=== PATIENT | male | born 1945 | race Caucasian/White ===

== ENCOUNTER 2022-04-30 06:25 | Day surgery (SDC) | payer MEDICARE ==
[~2022-04-30 06:25] MED LIST: DIPRIVAN 200 MG/20 ML IV ONE; Xylocaine-Mpf 2% 5 Ml Vial ONE
[2022-04-30] MEDS ORDERED: Lactated Ringers 1,000 ML IV SCH (06:30)
[2022-04-30] MEDS ORDERED: ATROPINE SULFATE 1MG ONE (08:02)
[2022-04-30 09:19] VITALS: O2SAT 98
[2022-04-30 09:43] VITALS: BP 137/74; PULSE 54
--- NOTE | 2022-04-30 10:23 | OP ---
SURGERY DATE/TIME: 04/30/2022 0759 PREOPERATIVE DIAGNOSIS: Screening exam. POSTOPERATIVE DIAGNOSIS: Multiple colon polyps. PROCEDURE: Colonoscopy with cold forceps biopsy. SURGEON: Dr. Reece Green. ANESTHESIA: MAC. Medications given by anesthesia department. HISTORY: The patient is a 77-year-old white male patient now presenting for screening colonoscopy. The patient was appraised of the risks of the procedure including the risk of perforation, phlebitis, untoward reaction to medication, bleeding and missed lesions. The patient verbalized his understanding and desired to have the procedure performed. DESCRIPTION OF PROCEDURE: The patient was given the medications by the anesthesia department. He had continuous pulse oximetry, ECG monitoring, intermittent blood pressure monitoring and tidal CO2 monitoring during the examination. He was placed in the left lateral decubitus position. A digital rectal examination was performed and revealed normal anal sphincter tone, no masses and normal prostate. The flexible Olympus pediatric colonoscope was used to intubate the rectum. A view of the colon was developed sequentially to the cecum. Upon insertion and withdrawal was noted polyps in the cecum, ascending colon and sigmoid colon. These were biopsied and basically destroyed using multiple passes of the cold biopsy forceps. No other mucosal lesions being encountered. The scope was removed from the patient who tolerated the procedure well and was sent back to OP recovery in good condition. The prep was noted to be fair to poor with over a liter of fluid and stool removed from the colon during the examination.
== END 2022-04-30 09:40 | disposition home or self-care (01) ==
LOC: SDC 06:25
PROVIDERS: ATTEND Family Medicine
DX: Z12.11 Encounter for screening for malignant neoplasm of colon (principal); D12.2 Benign neoplasm of ascending colon; D12.0 Benign neoplasm of cecum; D12.5 Benign neoplasm of sigmoid colon
CPT/HCPCS: 93005; 99100; J0461; J2704

== ENCOUNTER 2023-08-22 17:17 | Observation (INO) | payer MEDICARE, OTHER ==
--- NOTE | 2023-08-22 19:27 | ERPHSYRPT ---
- History of Present Illness Time Seen by Provider: 08/22/23 19:20 Source: patient, family Patient Subjective Stated Complaint: Patient began having chills, sweats, foul- smelling urine (cloudy), and some weakness (trouble with gait) on 08/20/23. Patient had a prostate surgery approx 3 weeks ago and F/C was removed 6 days ago. Triage Nursing Assessment: Patient brought back to ER in a W/C. He was able to bear weight to BLE without any difficulties to transfer from chair to bed with staff assist. He is noted to be SOB. No cough. Abdomen is distended. Denie pain. Physician History: 78yo m presents per PCP request following outpatient labs today that showed wbc > 14, UA w/ significant bacteria and leukocytes, pcp told pt they should come to ED for IV abx. Pt had prostate surgery 3wks ago by Dr Kinney in [place], pt had fonseca cath removed on 08/16/23. reports pt has had chills and sweats x 3d, reports pt has been intermittently confused for the same duration. Pt is currently AxO x 3, denies any cp, soa, n/v, does endorse some mild suprapubic tenderness. does report pt has been having b/l LE swelling x 1d, does not have dx of chf. Timing/Duration: day(s) (4) Activites at Onset: none Quality: aching Onset Location: suprapubic Pain Radiation: none Severity of Pain-Max: mild Severity of Pain-Current: mild Modifying Factors: Improves With: nothing Associated Symptoms: fever, chills, diaphoresis, dysuria, No nausea, No vomiting, No urinary frequency, No lower back pain Prior abdominal problems: other (prostatectomy in 07/2023) Sexual intercourse history: non-contributory Allergies/Adverse Reactions: adhesive tape Adverse Reaction (Verified 08/22/23 18:32) aloe vera Adverse Reaction (Verified 08/22/23 18:32) Rash lisinopril Adverse Reaction (Verified 08/22/23 18:32) Cough Home Medications: Allopurinol 100 mg [Zyloprim 100 mg] 100 mg PO BID 04/13/22 [History] Carbidopa/Levodopa [Carbidopa-Levodopa 25-100 Tab] 1 each PO TID 04/13/22 [History] Hydrocodone/Acetaminophen [Hydrocodone-Acetamin 10-325 mg] 1 each PO BID 04/13/22 [History] Losartan Potassium 50 mg PO DAILY 04/13/22 [History] Lovastatin 10 mg PO HS 04/13/22 [History] hydroCHLOROthiazide [Hydrochlorothiazide] 12.5 mg PO DAILY 04/13/22 [History] Aspirin EC 81 mg [Ecotrin 81 mg] 81 mg PO DAILY 08/22/23 [History] Gabapentin [Neurontin ] 300 mg PO DAILY 08/22/23 [History] Levofloxacin [Levofloxacin 500 MG Tablet] 500 mg PO 1300 08/22/23 [History] Tamsulosin HCl 0.4 mg [Flomax 0.4 MG] 0.4 mg PO 1500 08/22/23 [History] Hx Tetanus, Diphtheria Vaccination/Date Given: Yes Hx Influenza Vaccination/Date Given: No Hx Pneumococcal Vaccination/Date Given: No Immunizations Up to Date: Yes Travel Risk - International Travel Have you traveled outside of the country in past 3 weeks: No - Coronavirus Screening Are you exhibiting any of the following symptoms?: No Close contact with a COVID-19 positive Pt in past 14-21 Days: No - Vaccine Status Have you recieved a Covid-19 vaccination: No - Past Medical History Pertinent Past Medical History: Yes Neurological History: Peripheral Neuropathy, Other Cardiac History: Hypertension, Other Respiratory History: Other Endocrine Medical History: Other Musculoskeletal History: Osteoarthritis Male Reproductive Disorders: Prostate Problems Other Medical History: KIDNEY STONES, SOB AT TIMES, CABG X5, 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 - Past Surgical History Past Surgical History: Yes Cardiac: CABG, Cardiac Catheterization Musculoskeletal: Joint Replacement Male Surgical History: Prostate Surgery - Social History Smoking Status: Former smoker Exposure to second hand smoke: No Drug Use: none Patient Lives Alone: No - Review of Systems Constitutional: Chills, Fatigue, No Fever Respiratory: No Symptoms, No Cough, No Dyspnea Cardiac: No Symptoms, Edema, No Chest Pain Abdominal/Gastrointestinal: Abdominal Pain, No Nausea, No Vomiting Genitourinary Symptoms: Dysuria, Urgency, No Frequency, No Hematuria, No Urinary Retention, No Flank Pain, No Testicle Pain, No Penile Discharge - Nursing Vital Signs Nursing Vital Signs: Initial Vital Signs Pulse Rate 88 08/22/23 18:30 Respiratory Rate 22 08/22/23 18:30 Blood Pressure 126/52 08/22/23 18:30 O2 Sat by Pulse Oximetry 94 L 08/22/23 18:30 Pain Scale Pain Intensity 4 - Physical Exam General Appearance: no apparent distress, alert Eye Exam: PERRL/EOMI, eyes nml inspection Respiratory Exam: normal breath sounds, lungs clear, airway intact, No respiratory distress, No crackles/rales, No wheezing Cardiovascular Exam: regular rate/rhythm, normal heart sounds, edema (b/l LE 2+) Gastrointestinal/Abdomen Exam: soft, normal bowel sounds, No tenderness, No di stention Rectal Exam: deferred Neurologic Exam: alert, oriented x 3, cooperative SpO2 Interpretation: normal SpO2: 96 O2 Delivery: Room Air Ordered Tests: Active Orders 24 hr Category Date Time Status IV Insertion STAT Care 08/22/23 19:18 Active BLOOD CULTURE Stat Lab 08/22/23 19:38 Received BNPII [NT PRO BNPII] Stat Lab 08/22/23 19:30 Completed CBC W DIFF Stat Lab 08/22/23 19:30 Completed CMP Stat Lab 08/22/23 19:30 Completed CULTURE,URINE Stat Lab 08/22/23 20:55 Received Lactic Acid Stat Lab 08/22/23 19:15 Completed Lactic Acid Stat Lab 08/22/23 21:28 Completed UA W/RFX UR CULTURE Stat Lab 08/22/23 20:55 Completed Medication Summary Discontinued Medications Generic Name Dose Route Start Last Admin Trade Name Freq PRN Reason Stop Dose Admin Ceftriaxone Sodium 1,000 mg 08/22/23 19:18 08/22/23 19:42 Ceftriaxone Sodium 1000 Mg Inj Vial IM 08/22/23 19:19 1,000 mg STAT ONE Administration Ceftriaxone Sodium Confirm 08/22/23 19:35 Ceftriaxone Sodium 1000 Mg Inj Vial Administered 08/22/23 19:36 Dose 1,000 mg .ROUTE .STK-MED ONE Lidocaine HCl Confirm 08/22/23 19:35 Lidocaine Hcl 1% 20 Ml Mdv 20 Ml Ml Administered 08/22/23 19:36 Dose 2 ml .ROUTE .STK-MED ONE Lab/Rad Data: Laboratory Result Diagrams 08/22/23 19:30 08/22/23 19:30 Laboratory Results 08/22/23 08/22/23 08/22/23 Range/Units 21:28 20:55 19:30 WBC (4.0-10.5) x10^3/uL RBC (4.1-5.6) x10^6/uL Hgb (12.5-18.0) g/dL Hct (42-50) % MCV (78-100) fL MCH (26-32) pg MCHC (32-36) g/dL RDW (11.5-14.0) % Plt Count (150-450) x10^3/uL MPV (7.5-11.0) fL Gran % (36.0-66.0) % Immature Gran % (Auto) (0.00-0.4) % Nucleat RBC Rel Count (0.00-0.1) % Eos # (Auto) (0-0.5) x10^3/uL Immature Gran # (Auto) (0.00-0.03) x10^3u/L Absolute Lymphs (auto) (1.0-4.6) x10^3/uL Absolute Monos (auto) (0.0-1.3) x10^3/uL Absolute Nucleated RBC (0.00-0.01) x10^3u/L Lymphocytes % (24.0-44.0) % Monocytes % (0.0-12.0) % Eosinophils % (0.00-5.0) % Basophils % (0.0-0.4) % Absolute Granulocytes (1.4-6.9) x10^3/uL Basophils # (0-0.4) x10^3/uL Sodium (137-145) mmol/L Potassium (3.5-5.1) mmol/L Chloride (98-107) mmol/L Carbon Dioxide (22-30) mmol/L Anion Gap (5-15) MEQ/L BUN (9-20) mg/dL Creatinine (0.66-1.25) mg/dL Estimated GFR ML/MIN Glucose (74-106) mg/dL Lactic Acid 1.4 (0.4-2.0) Calcium (8.4-10.2) mg/dL Total Bilirubin (0.2-1.3) mg/dL AST (17-59) U/L ALT (0-50) U/L Alkaline Phosphatase (38-126) U/L NT-Pro-B Natriuret Pep 2860 (<300) pg/mL Serum Total Protein (6.3-8.2) g/dL Albumin (3.5-5.0) g/dL Urine Color Yellow (Yellow) Urine Appearance Turbid A (Clear) Urine pH 6.0 (4.6-8.0) Ur Specific [place] 1.015 (1.005-1.030) Urine Protein 100 A (Negative) Urine Glucose (UA) Negative (Negative) mg/dL Urine Ketones Trace A (Negative) Urine Blood Moderate A (Negative) Urine Nitrite Negative (Negative) Urine Bilirubin Negative (Negative) Urine Urobilinogen 1.0 A (0.2) mg/dL Ur Leukocyte Esterase Large A (Negative) U Hyaline Cast (Auto) None Seen (0-2) /LPF Urine Microscopic RBC 0-2 (0-5) /HPF Urine Microscopic WBC >100 A (0-5) /HPF Ur Epithelial Cells None Seen (None Seen) /HPF Urine Bacteria Moderate A (None Seen) /HPF Urine Culture Reflexed YES (NO) Slides for Path Review 08/22/23 08/22/23 08/22/23 Range/Units 19:30 19:30 19:15 WBC 15.9 H (4.0-10.5) x10^3/uL RBC 3.87 L (4.1-5.6) x10^6/uL Hgb 11.5 L (12.5-18.0) g/dL Hct 33.9 L (42-50) % MCV 87.6 (78-100) fL MCH 29.7 (26-32) pg MCHC 33.9 (32-36) g/dL RDW 14.0 (11.5-14.0) % Plt Count 190 (150-450) x10^3/uL MPV 10.6 (7.5-11.0) fL Gran % 88.1 H (36.0-66.0) % Immature Gran % (Auto) 0.5 H (0.00-0.4) % Nucleat RBC Rel Count 0.0 (0.00-0.1) % Eos # (Auto) 0.01 (0-0.5) x10^3/uL Immature Gran # (Auto) 0.08 H (0.00-0.03) x10^3u/L Absolute Lymphs (auto) 0.37 L (1.0-4.6) x10^3/uL Absolute Monos (auto) 1.42 H (0.0-1.3) x10^3/uL Absolute Nucleated RBC 0.00 (0.00-0.01) x10^3u/L Lymphocytes % 2.3 L (24.0-44.0) % Monocytes % 8.9 (0.0-12.0) % Eosinophils % 0.1 (0.00-5.0) % Basophils % 0.1 (0.0-0.4) % Absolute Granulocytes 14.01 H (1.4-6.9) x10^3/uL Basophils # 0.02 (0-0.4) x10^3/uL Sodium 128 L (137-145) mmol/L Potassium 3.9 (3.5-5.1) mmol/L Chloride 97 L (98-107) mmol/L Carbon Dioxide 19 L (22-30) mmol/L Anion Gap 15.8 H (5-15) MEQ/L BUN 92 H (9-20) mg/dL Creatinine 3.00 H (0.66-1.25) mg/dL Estimated GFR 20.5 ML/MIN Glucose 139 H (74-106) mg/dL Lactic Acid 2.4 H (0.4-2.0) Calcium 8.5 (8.4-10.2) mg/dL Total Bilirubin 0.90 (0.2-1.3) mg/dL AST 106 H (17-59) U/L ALT 10 (0-50) U/L Alkaline Phosphatase 105 (38-126) U/L NT-Pro-B Natriuret Pep (<300) pg/mL Serum Total Protein 6.5 (6.3-8.2) g/dL Albumin 3.7 (3.5-5.0) g/dL Urine Color (Yellow) Urine Appearance (Clear) Urine pH (4.6-8.0) Ur Specific [place] (1.005-1.030) Urine Protein (Negative) Urine Glucose (UA) (Negative) mg/dL Urine Ketones (Negative) Urine Blood (Negative) Urine Nitrite (Negative) Urine Bilirubin (Negative) Urine Urobilinogen (0.2) mg/dL Ur Leukocyte Esterase (Negative) U Hyaline Cast (Auto) (0-2) /LPF Urine Microscopic RBC (0-5) /HPF Urine Microscopic WBC (0-5) /HPF Ur Epithelial Cells (None Seen) /HPF Urine Bacteria (None Seen) /HPF Urine Culture Reflexed (NO) Slides for Path Review YES - Progress Progress: unchanged Progress Note: 08/22/23 20:43 wbc > 15 Lactate 2.4 electrolytes diminished Cr 3.0 BNP > 2800 infxn source likely UTI, UA pending but had outpatient labs today suggesting UTI given 1g rocephin in ED blood and urine cx pending, will repeat lactate resuscitative fluids held in setting of significant fluid overload vitals stable 08/22/23 22:02 Urine grossly infected plan to admit for complicated cystitis, previously undiagnosed CHF w/ exacerbation 08/22/23 22:03 lactate improved to 1.4 08/22/23 22:10 Discussed admission w/ Dr Dotson, who accepts for obs Will see patient in: hospital (observation) Counseled pt/family regarding: lab results, diagnosis, need for follow-up Medical Desision Making - Discussion of managment Care discussed with:: hospitalist Reviewed:: Test results Agreed on:: Treatment plan, place in obs Will see patient: in hospital - Diagnostic Testing Diagnostic test were ordered, analyzed, and reviewed by me: No - Risk of complications The pt has a mod risk of morbidity or mortality based on: Need for prescription drug management - Departure Departure Disposition: Observation Clinical Impression: Urinary tract infection in male, CHERYL (acute kidney injury) Acute exacerbation of congestive heart failure Qualifiers: Heart failure type: unspecified Qualified Code(s): I50.9 - Heart failure, u nspecified Condition: Stable Critical Care Time: No Referrals: ROSSANA MIGUEL [Primary Care Provider] - Follow up/PCP as directed Instructions: Heart Failure
[2023-08-22] MEDS ORDERED: XYLOCAINE 1% HCL 20 ML MDV ONE (19:35)
[2023-08-22] MEDS ORDERED: Rocephin 1000 MG INJ ONE (19:35)
[2023-08-22] MEDS: Rocephin 1000 MG INJ IM ONE (19:42)
[2023-08-22 19:46] LABS: Absolute Neutrophil Ct (ANC) 14.01 x10^3/uL (1.4-6.9); BASOPHIL % 0.1 % (0.0-0.4); Basophil (Absolute #) 0.02 x10^3/uL (0-0.4); Eosinophil % 0.1 % (0.00-5.0); Eosinophil (Absolute #) 0.01 x10^3/uL (0-0.5); Hematocrit 33.9 % (42-50); Hemoglobin 11.5 g/dL (12.5-18.0); IMMATURE GRAN # 0.08 x10^3u/L (0.00-0.03); IMMATURE GRAN % 0.5 % (0.00-0.4); Lymphocyte (Absolute #) 0.37 x10^3/uL (1.0-4.6); Lymphocytes % 2.3 % (24.0-44.0); Mean Cell Volume 87.6 fL (78-100); Mean Corpuscular Hemoglobin 29.7 pg (26-32); Mean Corpuscular Hgb Concent. 33.9 g/dL (32-36); Mean Platelet Volume 10.6 fL (7.5-11.0); Monocyte (Absolute #) 1.42 x10^3/uL (0.0-1.3); Monocytes % 8.9 % (0.0-12.0); Neutrophil % 88.1 % (36.0-66.0); Platelet Count 190 x10^3/uL (150-450); Red Blood Count 3.87 x10^6/uL (4.1-5.6); White Blood Count 15.9 x10^3/uL (4.0-10.5)
[2023-08-22 20:02] LABS: ALBUMIN 3.7 g/dL (3.5-5.0); ANION GAP 15.8 MEQ/L (5-15); BILIRUBIN,TOTAL 0.9 mg/dL (0.2-1.3); Calcium 8.5 mg/dL (8.4-10.2); EST GLOMERULAR FILTRATION RATE 20.5 ML/MIN; Potassium 3.9 mmol/L (3.5-5.1); Total Protein 6.5 g/dL (6.3-8.2)
[2023-08-22 21:09] LABS: Appearance Turbid (Clear); Bilirubin Negative (Negative); Blood Moderate (Negative); Glucose, Urine Negative (Negative); Ketones Trace (Negative); Leukocyte Esterase Large (Negative); Nitrite Negative (Negative); Protein,Urine Dip 100 (Negative); Specific Gravity 1.015 (1.005-1.030)
[2023-08-22 21:30] LABS: Slide Review 1 YES
[2023-08-22 21:49] LABS: Epithelial Cells None Seen /HPF (None Seen); RBC 0-2 /HPF (0-5); WBC >100 /HPF (0-5)
[2023-08-22 21:50] LABS: ADD URINE CULTURE? YES (NO); Bacteria Moderate /HPF (None Seen); Hyaline Casts None Seen /LPF (0-2)
[2023-08-22] MEDS ORDERED: Apresoline 25 MG TABLET PO PRN (23:46)
[2023-08-23] MEDS ORDERED: Zofran 4 MG/2 ML VIAL IV PRN
[2023-08-23] MEDS ORDERED: Docusate Sodium 100 MG PO PRN
--- NOTE | 2023-08-23 00:09 | PCM.HP ---
History of Present Illness - Chief Complaint Chief Complaint: UTI Date: 08/22/23 History of Present Illness: is a 78 year old male with a history of prostate enlargement and recent prostate procedure by Dr. Kinney on 08/01/23 (and postop Avila catheter removal on 08/16/23) who presents to the hospital with complaints of having chills, sweats, foul-smelling urine (cloudy), and some weakness (trouble with gait) on 08/20/23. He followed up with Dr. Barnes and had outpatient labs that showed wbc > 14 and a UA w/ significant bacteria and leukocytes. The PCP said the patient should come to the ED for IV antibiotics. The patient's reports that he has had chills and sweats for 3 days, with intermittent confusion for the same duration. In the ED the patient was oriented and had mild suprapubic tenderness. Leg edema was noted bilaterally and the patient's feels like the leg edema is improved since the patient recently had an injury. No chest pain. - Review of Systems Constitutional: Fever, Chills, Fatigue, Lethargy, Malaise, Weakness Eyes: No Symptoms Ears, Nose, & Throat: No Symptoms Respiratory: No Symptoms Cardiac: No Symptoms Abdominal/Gastrointestinal: Abdominal Pain Genitourinary Symptoms: Dysuria, Flank Pain Skin: No Symptoms Neurological: No Symptoms Psychological: No Symptoms Endocrine: No Symptoms Hematologic/Lymphatic: No Symptoms Immunological/Allergic: No Symptoms All Other Systems: Reviewed and Negative Medications & Allergies Home Medications: Home Medication List Allopurinol 100 mg [Zyloprim 100 mg] 100 mg PO BID 04/13/22 [History Confirmed 08/22/23] Carbidopa/Levodopa [Carbidopa-Levodopa 25-100 Tab] 2 tab PO TID 04/13/22 [History Confirmed 08/22/23] Hydrocodone/Acetaminophen [Hydrocodone-Acetamin 10-325 mg] 1 each PO BID 04/13/22 [History Confirmed 08/22/23] Losartan Potassium 50 mg PO DAILY 04/13/22 [History Confirmed 08/22/23] Lovastatin 10 mg PO HS 04/13/22 [History Confirmed 08/22/23] hydroCHLOROthiazide [Hydrochlorothiazide] 12.5 mg PO DAILY 04/13/22 [History Confirmed 08/22/23] Aspirin EC 81 mg [Ecotrin 81 mg] 81 mg PO HS 08/22/23 [History Confirmed 08/22/23] Gabapentin [Neurontin ] 300 mg PO DAILY 08/22/23 [History Confirmed 08/22/23] Levofloxacin [Levofloxacin 500 MG Tablet] 500 mg PO 1300 08/22/23 [History Confirmed 08/22/23] Tamsulosin HCl 0.4 mg [Flomax 0.4 MG] 0.4 mg PO 1500 08/22/23 [History Confirmed 08/22/23] Allergies/Adverse Reactions: Allergies Allergy/AdvReac Type Severity Reaction Status Date / Time adhesive tape AdvReac Verified 08/22/23 18:32 aloe vera AdvReac Rash Verified 08/22/23 18:32 lisinopril AdvReac Cough Verified 08/22/23 18:32 - Past Medical History Past Medical History: Yes Neurological History: Peripheral Neuropathy, Other ENT History: No Pertinent History Cardiac History: Hypertension Respiratory History: No Pertinent History Endocrine Medical History: No Pertinent History Musculoskelatal History: Osteoarthritis GI Medical History: No Pertinent History History: No Pertinent History Male Reproductive Disorders: Prostate Problems Comment: KIDNEY STONES, SOB AT TIMES, CABG X5, 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 - Past Surgical History Past Surgical History: Yes Neuro Surgical History: No Pertinent History Cardiac History: CABG, Cardiac Catheterization Respiratory Surgery: No Pertinent History GI Surgical History: Appendectomy Genitourinary Surgical Hx: No Pertinent History Musculskeletal Surgical Hx: Joint Replacement Male Surgical History: Prostate Surgery Other Surgical History: eye lid surgery - Social History Smoking Status: Former smoker Exposure to second hand smoke: No Alcohol: None Drug Use: none - Physical Exam Vital Signs: Vital Signs - 24 hr Temp Pulse Resp BP BP Pulse Ox 08/22/23 22:52 97.7 F 93 H 18 128/59 95 08/22/23 22:12 96 08/22/23 22:00 74 23 99/58 95 08/22/23 21:31 72 26 H 103/54 95 08/22/23 21:01 77 24 111/67 96 08/22/23 20:30 98.5 F 76 29 H 100/58 95 08/22/23 20:00 76 26 H 115/55 93 L 08/22/23 19:45 81 22 109/53 93 L 08/22/23 19:40 87 26 H 94 L 08/22/23 19:32 83 13 92 L 08/22/23 19:00 88 25 H 108/47 94 L 08/22/23 18:33 98.2 F 90 30 H 126/52 96 08/22/23 18:30 88 22 126/52 94 L General Appearance: no apparent distress, alert Neurologic Exam: alert, oriented x 3, cooperative, eyeglass lens grinder II-XII nml as tested, normal mood/affect, nml cerebellar function Eye Exam: PERRL/EOMI, eyes nml inspection Ears, Nose, Throat Exam: normal ENT inspection Neck Exam: normal inspection, non-tender, supple, full range of motion Respiratory Exam: normal breath sounds, lungs clear Cardiovascular Exam: regular rate/rhythm, normal heart sounds, edema (bilateral nonpitting pedal edema) Gastrointestinal/Abdomen Exam: soft, normal bowel sounds Back Exam: normal range of motion, CVA tenderness (on left) Extremity Exam: normal range of motion, pedal edema (bilateral nonpitting), swelling Skin Exam: normal color Results - Labs Lab/Micro Results: Lab Results-Last 24 Hours 08/22/23 08/22/23 08/22/23 Range/Units 19:15 19:30 19:30 WBC 15.9 H (4.0-10.5) x10^3/uL RBC 3.87 L (4.1-5.6) x10^6/uL Hgb 11.5 L (12.5-18.0) g/dL Hct 33.9 L (42-50) % MCV 87.6 (78-100) fL MCH 29.7 (26-32) pg MCHC 33.9 (32-36) g/dL RDW 14.0 (11.5-14.0) % Plt Count 190 (150-450) x10^3/uL MPV 10.6 (7.5-11.0) fL Gran % 88.1 H (36.0-66.0) % Immature Gran % (Auto) 0.5 H (0.00-0.4) % Nucleat RBC Rel Count 0.0 (0.00-0.1) % Eos # (Auto) 0.01 (0-0.5) x10^3/uL Immature Gran # (Auto) 0.08 H (0.00-0.03) x10^3u/L Absolute Lymphs (auto) 0.37 L (1.0-4.6) x10^3/uL Absolute Monos (auto) 1.42 H (0.0-1.3) x10^3/uL Absolute Nucleated RBC 0.00 (0.00-0.01) x10^3u/L Lymphocytes % 2.3 L (24.0-44.0) % Monocytes % 8.9 (0.0-12.0) % Eosinophils % 0.1 (0.00-5.0) % Basophils % 0.1 (0.0-0.4) % Absolute Granulocytes 14.01 H (1.4-6.9) x10^3/uL Basophils # 0.02 (0-0.4) x10^3/uL Sodium 128 L (137-145) mmol/L Potassium 3.9 (3.5-5.1) mmol/L Chloride 97 L (98-107) mmol/L Carbon Dioxide 19 L (22-30) mmol/L Anion Gap 15.8 H (5-15) MEQ/L BUN 92 H (9-20) mg/dL Creatinine 3.00 H (0.66-1.25) mg/dL Estimated GFR 20.5 ML/MIN Glucose 139 H (74-106) mg/dL Lactic Acid 2.4 H (0.4-2.0) Calcium 8.5 (8.4-10.2) mg/dL Total Bilirubin 0.90 (0.2-1.3) mg/dL AST 106 H (17-59) U/L ALT 10 (0-50) U/L Alkaline Phosphatase 105 (38-126) U/L NT-Pro-B Natriuret Pep (<300) pg/mL Serum Total Protein 6.5 (6.3-8.2) g/dL Albumin 3.7 (3.5-5.0) g/dL Urine Color (Yellow) Urine Appearance (Clear) Urine pH (4.6-8.0) Ur Specific [place] (1.005-1.030) Urine Protein (Negative) Urine Glucose (UA) (Negative) mg/dL Urine Ketones (Negative) Urine Blood (Negative) Urine Nitrite (Negative) Urine Bilirubin (Negative) Urine Urobilinogen (0.2) mg/dL Ur Leukocyte Esterase (Negative) U Hyaline Cast (Auto) (0-2) /LPF Urine Microscopic RBC (0-5) /HPF Urine Microscopic WBC (0-5) /HPF Ur Epithelial Cells (None Seen) /HPF Urine Bacteria (None Seen) /HPF Urine Culture Reflexed (NO) Slides for Path Review YES 08/22/23 08/22/23 08/22/23 Range/Units 19:30 20:55 21:28 WBC (4.0-10.5) x10^3/uL RBC (4.1-5.6) x10^6/uL Hgb (12.5-18.0) g/dL Hct (42-50) % MCV (78-100) fL MCH (26-32) pg MCHC (32-36) g/dL RDW (11.5-14.0) % Plt Count (150-450) x10^3/uL MPV (7.5-11.0) fL Gran % (36.0-66.0) % Immature Gran % (Auto) (0.00-0.4) % Nucleat RBC Rel Count (0.00-0.1) % Eos # (Auto) (0-0.5) x10^3/uL Immature Gran # (Auto) (0.00-0.03) x10^3u/L Absolute Lymphs (auto) (1.0-4.6) x10^3/uL Absolute Monos (auto) (0.0-1.3) x10^3/uL Absolute Nucleated RBC (0.00-0.01) x10^3u/L Lymphocytes % (24.0-44.0) % Monocytes % (0.0-12.0) % Eosinophils % (0.00-5.0) % Basophils % (0.0-0.4) % Absolute Granulocytes (1.4-6.9) x10^3/uL Basophils # (0-0.4) x10^3/uL Sodium (137-145) mmol/L Potassium (3.5-5.1) mmol/L Chloride (98-107) mmol/L Carbon Dioxide (22-30) mmol/L Anion Gap (5-15) MEQ/L BUN (9-20) mg/dL Creatinine (0.66-1.25) mg/dL Estimated GFR ML/MIN Glucose (74-106) mg/dL Lactic Acid 1.4 (0.4-2.0) Calcium (8.4-10.2) mg/dL Total Bilirubin (0.2-1.3) mg/dL AST (17-59) U/L ALT (0-50) U/L Alkaline Phosphatase (38-126) U/L NT-Pro-B Natriuret Pep 2860 (<300) pg/mL Serum Total Protein (6.3-8.2) g/dL Albumin (3.5-5.0) g/dL Urine Color Yellow (Yellow) Urine Appearance Turbid A (Clear) Urine pH 6.0 (4.6-8.0) Ur Specific [place] 1.015 (1.005-1.030) Urine Protein 100 A (Negative) Urine Glucose (UA) Negative (Negative) mg/dL Urine Ketones Trace A (Negative) Urine Blood Moderate A (Negative) Urine Nitrite Negative (Negative) Urine Bilirubin Negative (Negative) Urine Urobilinogen 1.0 A (0.2) mg/dL Ur Leukocyte Esterase Large A (Negative) U Hyaline Cast (Auto) None Seen (0-2) /LPF Urine Microscopic RBC 0-2 (0-5) /HPF Urine Microscopic WBC >100 A (0-5) /HPF Ur Epithelial Cells None Seen (None Seen) /HPF Urine Bacteria Moderate A (None Seen) /HPF Urine Culture Reflexed YES (NO) Slides for Path Review - Radiology Impressions Radiology Exams & Impressions: Radiology Procedures Category Date Time Status CHEST 2 VIEWS (PA AND LAT) Routine Exams 08/23/23 07:00 Ordered ECHO W/2D AND DOPPLER [US] Routine Exams 08/23/23 00:03 Ordered US ABDOMEN LIMITED [ABDOMINAL-LIMITED] [US] Routine Exams 08/22/23 23:59 Ordered Assessment/Plan (1) Urinary tract infection in male Current Visit: Yes Status: Acute Assessment & Plan: Started on Levaquin x 1 dose as outpatient. Will switch to IV Rocephin and follow cultures. Had left CVA tenderness on exam. Code(s): N39.0 - URINARY TRACT INFECTION, SITE NOT SPECIFIED (2) Acute exacerbation of congestive heart failure Current Visit: Yes Status: Acute Qualifiers: Heart failure type: unspecified Qualified Code(s): I50.9 - Heart failure, unspecified Assessment & Plan: Cannot diurese due to renal dysfunction. Will obtain ECHO and monitor on tele, and also obtain CXR. No rales on exam. Reassess volume status. Code(s): I50.9 - HEART FAILURE, UNSPECIFIED (3) CHERYL (acute kidney injury) Current Visit: Yes Status: Acute Assessment & Plan: Hold HCTZ and ARB. Avoiding IV fluids due to concerns about volume overload. Will order renal US to rule out acute obstructive uropathy. Also will check bladder scans and cath as needed. Code(s): N17.9 - ACUTE KIDNEY FAILURE, UNSPECIFIED Telemedicine Encounter - Telemedicine Encounter Telemedicine Encounter: The entirety of this encounter was performed via Telemedicine"
[2023-08-23] MEDS: ROCEPHIN 1 GM / 100 ML NaCl 1 GM/100 ML IVPB IV SCH ×2 (00:12→21:36)
[2023-08-23 05:27] LABS: Absolute Neutrophil Ct (ANC) 10.32 x10^3/uL (1.4-6.9); BASOPHIL % 0.2 % (0.0-0.4); Basophil (Absolute #) 0.02 x10^3/uL (0-0.4); Eosinophil % 0.4 % (0.00-5.0); Eosinophil (Absolute #) 0.05 x10^3/uL (0-0.5); Hematocrit 31.9 % (42-50); Hemoglobin 10.6 g/dL (12.5-18.0); IMMATURE GRAN # 0.09 x10^3u/L (0.00-0.03); IMMATURE GRAN % 0.7 % (0.00-0.4); Lymphocyte (Absolute #) 0.64 x10^3/uL (1.0-4.6); Lymphocytes % 5.2 % (24.0-44.0); Mean Cell Volume 87.4 fL (78-100); Mean Corpuscular Hgb Concent. 33.2 g/dL (32-36); Mean Platelet Volume 9.8 fL (7.5-11.0); Monocytes % 10.5 % (0.0-12.0); Platelet Count 162 x10^3/uL (150-450); Red Blood Count 3.65 x10^6/uL (4.1-5.6); Red Cell Distribution Width 13.8 % (11.5-14.0); White Blood Count 12.4 x10^3/uL (4.0-10.5)
[2023-08-23 06:35] LABS: ANION GAP 13.7 MEQ/L (5-15); Calcium 8.3 mg/dL (8.4-10.2); Creatinine 1 2.67 mg/dL (0.66-1.25); EST GLOMERULAR FILTRATION RATE 23.6 ML/MIN; Potassium 3.7 mmol/L (3.5-5.1)
--- NOTE | 2023-08-23 09:14 | XRAY ---
Indication: Volume overload. Comparison: None AP/lateral chest obtained in wheelchair demonstrates hyperinflated lungs with small left effusion and left midlung subsegmental atelectasis. Right lung clear. Heart not enlarged with CABG. Bony thorax intact with osteopenia, mild degenerative changes, and old right rib fractures.
[2023-08-23] MEDS: Sinemet 25/100 MG PO SCH (10:30)
[2023-08-23] MEDS: NORCO 10-325 MG PO SCH (10:30)
[2023-08-23] MEDS: Acidophilus TABLET PO SCH (10:30)
[2023-08-23] MEDS: NEURONTIN PO SCH (10:30)
[2023-08-23] MEDS: ZYLOPRIM 100 MG PO SCH (10:31)
[2023-08-23] MEDS: Pepcid 20 MG PO SCH (10:31)
[2023-08-23] MEDS: HEPARIN 5000 UNITS/0.5 ML (HIGH RISK MED) SQ SCH (10:31)
--- NOTE | 2023-08-23 11:21 | XRAY ---
Indication: Acute kidney injury. History renal stones. Two-dimensional renal sonogram performed. Comparison: None Both kidneys normal in reniform shape with normal color perfusion. Right kidney measures 12.2 x 6.2 x 6.6 cm and left measures 14.7 x 8.6 x 7.5 cm. Left kidney moderately hydronephrotic. Neither kidneys demonstrate focal solid/cystic renal mass or perinephric fluid. Urinary bladder markedly distended up to 1505 cc. No focal bladder mass. Normal bilateral ureteral jets. Postvoid volume is 1212 cc. Impression: 1. Abnormally distended urinary bladder with large post void residual as detailed. Rule out outlet obstruction versus neurogenic bladder. 2. 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 Rule out vesico-ureteral reflux as a potential etiology.
--- NOTE | 2023-08-23 12:16 | PCM.NOTE ---
Date and Time: 08/23/23 1211 Subjective Assessment: is a 78 year old male with a history of prostate enlargement and recent prostate procedure by Dr. Kinney on 08/01/23 (and postop Avila catheter removal on 08/16/23) who presents to the hospital with complaints of having chills, sweats, foul-smelling urine (cloudy), and some weakness (trouble with gait) on 08/20/23. He followed up with Dr. Barnes and had outpatient labs that showed wbc > 14 and a UA w/ significant bacteria and leukocytes. The PCP said the patient should come to the ED for IV antibiotics. The patient's reports that he has had chills and sweats for 3 days, with intermittent confusion for the same duration. In the ED the patient was oriented and had mild suprapubic t enderness. Leg edema was noted bilaterally and the patient's feels like the leg edema is improved since the patient recently had an injury. CHERYL and WBC improved since admission yesterday. UC and BC x2 still pending Pt has a renal US and echo today- results are pending. Will continue antibiotics for UTI. Pt's family would like him discharged as soon as possible so that they can f/u with their specialist in [place]. Most likely will d/c tomorrow. Pt denies any further concerns at this time. - Review of Systems Constitutional: No Fever, No Chills Eyes: No Symptoms Ears, Nose, & Throat: No Symptoms Respiratory: No Cough, No Short Of Breath Cardiac: Edema (2+ BLLE), No Chest Pain, No Syncope Abdominal/Gastrointestinal: No Abdominal Pain, No Nausea, No Vomiting, No Diarrhea Genitourinary Symptoms: No Dysuria Musculoskeletal: No Back Pain, No Neck Pain Skin: No Rash Neurological: No Dizziness, No Focal Weakness, No Sensory Changes Psychological: No Symptoms Endocrine: No Symptoms Hematologic/Lymphatic: No Symptoms Immunological/Allergic: No Symptoms Objective Exam General Appearance: no apparent distress, alert Neurologic Exam: alert, oriented x 3, cooperative, normal mood/affect, nml cerebellar function, sensation nml, No motor deficits Skin Exam: normal color, warm, dry Eye Exam: PERRL, EOMI, eyes nml inspection Ears, Nose, Throat Exam: normal ENT inspection, pharynx normal, moist mucous membranes Neck Exam: normal inspection, non-tender, supple, full range of motion Respiratory Exam: normal breath sounds, lungs clear, No respiratory distress Cardiovascular Exam: regular rate/rhythm, normal heart sounds, edema (+2 pitting edema BLLE) Gastrointestinal/Abdomen Exam: soft, No tenderness, No mass Extremity Exam: normal inspection, normal range of motion Back Exam: normal inspection, normal range of motion, No CVA tenderness, No vertebral tenderness Male Genitalia Exam: deferred Rectal Exam: deferred OBJECTIVE DATA Vital Signs: Vital Signs - 24 hr Temp Pulse Resp BP BP Pulse Ox 08/23/23 08:23 93 L 08/23/23 08:00 98.2 F 63 18 137/64 99 08/23/23 04:00 97.3 F 58 L 18 120/56 99 08/22/23 22:52 97.7 F 93 H 18 128/59 95 08/22/23 22:12 96 08/22/23 22:00 74 23 99/58 95 08/22/23 21:31 72 26 H 103/54 95 08/22/23 21:01 77 24 111/67 96 08/22/23 20:30 98.5 F 76 29 H 100/58 95 08/22/23 20:00 76 26 H 115/55 93 L 08/22/23 19:45 81 22 109/53 93 L 08/22/23 19:40 87 26 H 94 L 08/22/23 19:32 83 13 92 L 08/22/23 19:00 88 25 H 108/47 94 L 08/22/23 18:33 98.2 F 90 30 H 126/52 96 08/22/23 18:30 88 22 126/52 94 L Pain Assessment - Last Documented Pain Intensity 0 Intake and Output: Intake & Output 08/21/23 08/22/23 08/23/23 08/24/23 11:59 11:59 11:59 11:59 Output Total 1000 Balance -1000 Weight 120.6 kg Lab Results: Lab Results-Last 24 Hours 08/22/23 08/22/23 08/22/23 Range/Units 19:15 19:30 19:30 WBC 15.9 H (4.0-10.5) x10^3/uL RBC 3.87 L (4.1-5.6) x10^6/uL Hgb 11.5 L (12.5-18.0) g/dL Hct 33.9 L (42-50) % MCV 87.6 (78-100) fL MCH 29.7 (26-32) pg MCHC 33.9 (32-36) g/dL RDW 14.0 (11.5-14.0) % Plt Count 190 (150-450) x10^3/uL MPV 10.6 (7.5-11.0) fL Gran % 88.1 H (36.0-66.0) % Immature Gran % (Auto) 0.5 H (0.00-0.4) % Nucleat RBC Rel Count 0.0 (0.00-0.1) % Eos # (Auto) 0.01 (0-0.5) x10^3/uL Immature Gran # (Auto) 0.08 H (0.00-0.03) x10^3u/L Absolute Lymphs (auto) 0.37 L (1.0-4.6) x10^3/uL Absolute Monos (auto) 1.42 H (0.0-1.3) x10^3/uL Absolute Nucleated RBC 0.00 (0.00-0.01) x10^3u/L Lymphocytes % 2.3 L (24.0-44.0) % Monocytes % 8.9 (0.0-12.0) % Eosinophils % 0.1 (0.00-5.0) % Basophils % 0.1 (0.0-0.4) % Absolute Granulocytes 14.01 H (1.4-6.9) x10^3/uL Basophils # 0.02 (0-0.4) x10^3/uL Sodium 128 L (137-145) mmol/L Potassium 3.9 (3.5-5.1) mmol/L Chloride 97 L (98-107) mmol/L Carbon Dioxide 19 L (22-30) mmol/L Anion Gap 15.8 H (5-15) MEQ/L BUN 92 H (9-20) mg/dL Creatinine 3.00 H (0.66-1.25) mg/dL Estimated GFR 20.5 ML/MIN Glucose 139 H (74-106) mg/dL Lactic Acid 2.4 H (0.4-2.0) Calcium 8.5 (8.4-10.2) mg/dL Total Bilirubin 0.90 (0.2-1.3) mg/dL AST 106 H (17-59) U/L ALT 10 (0-50) U/L Alkaline Phosphatase 105 (38-126) U/L NT-Pro-B Natriuret Pep (<300) pg/mL Serum Total Protein 6.5 (6.3-8.2) g/dL Albumin 3.7 (3.5-5.0) g/dL Urine Color (Yellow) Urine Appearance (Clear) Urine pH (4.6-8.0) Ur Specific [place] (1.005-1.030) Urine Protein (Negative) Urine Glucose (UA) (Negative) mg/dL Urine Ketones (Negative) Urine Blood (Negative) Urine Nitrite (Negative) Urine Bilirubin (Negative) Urine Urobilinogen (0.2) mg/dL Ur Leukocyte Esterase (Negative) U Hyaline Cast (Auto) (0-2) /LPF Urine Microscopic RBC (0-5) /HPF Urine Microscopic WBC (0-5) /HPF Ur Epithelial Cells (None Seen) /HPF Urine Bacteria (None Seen) /HPF Urine Culture Reflexed (NO) Slides for Path Review YES 08/22/23 08/22/23 08/22/23 Range/Units 19:30 20:55 21:28 WBC (4.0-10.5) x10^3/uL RBC (4.1-5.6) x10^6/uL Hgb (12.5-18.0) g/dL Hct (42-50) % MCV (78-100) fL MCH (26-32) pg MCHC (32-36) g/dL RDW (11.5-14.0) % Plt Count (150-450) x10^3/uL MPV (7.5-11.0) fL Gran % (36.0-66.0) % Immature Gran % (Auto) (0.00-0.4) % Nucleat RBC Rel Count (0.00-0.1) % Eos # (Auto) (0-0.5) x10^3/uL Immature Gran # (Auto) (0.00-0.03) x10^3u/L Absolute Lymphs (auto) (1.0-4.6) x10^3/uL Absolute Monos (auto) (0.0-1.3) x10^3/uL Absolute Nucleated RBC (0.00-0.01) x10^3u/L Lymphocytes % (24.0-44.0) % Monocytes % (0.0-12.0) % Eosinophils % (0.00-5.0) % Basophils % (0.0-0.4) % Absolute Granulocytes (1.4-6.9) x10^3/uL Basophils # (0-0.4) x10^3/uL Sodium (137-145) mmol/L Potassium (3.5-5.1) mmol/L Chloride (98-107) mmol/L Carbon Dioxide (22-30) mmol/L Anion Gap (5-15) MEQ/L BUN (9-20) mg/dL Creatinine (0.66-1.25) mg/dL Estimated GFR ML/MIN Glucose (74-106) mg/dL Lactic Acid 1.4 (0.4-2.0) Calcium (8.4-10.2) mg/dL Total Bilirubin (0.2-1.3) mg/dL AST (17-59) U/L ALT (0-50) U/L Alkaline Phosphatase (38-126) U/L NT-Pro-B Natriuret Pep 2860 (<300) pg/mL Serum Total Protein (6.3-8.2) g/dL Albumin (3.5-5.0) g/dL Urine Color Yellow (Yellow) Urine Appearance Turbid A (Clear) Urine pH 6.0 (4.6-8.0) Ur Specific [place] 1.015 (1.005-1.030) Urine Protein 100 A (Negative) Urine Glucose (UA) Negative (Negative) mg/dL Urine Ketones Trace A (Negative) Urine Blood Moderate A (Negative) Urine Nitrite Negative (Negative) Urine Bilirubin Negative (Negative) Urine Urobilinogen 1.0 A (0.2) mg/dL Ur Leukocyte Esterase Large A (Negative) U Hyaline Cast (Auto) None Seen (0-2) /LPF Urine Microscopic RBC 0-2 (0-5) /HPF Urine Microscopic WBC >100 A (0-5) /HPF Ur Epithelial Cells None Seen (None Seen) /HPF Urine Bacteria Moderate A (None Seen) /HPF Urine Culture Reflexed YES (NO) Slides for Path Review 08/23/23 08/23/23 Range/Units 04:20 04:20 WBC 12.4 H (4.0-10.5) x10^3/uL RBC 3.65 L (4.1-5.6) x10^6/uL Hgb 10.6 L (12.5-18.0) g/dL Hct 31.9 L (42-50) % MCV 87.4 (78-100) fL MCH 29.0 (26-32) pg MCHC 33.2 (32-36) g/dL RDW 13.8 (11.5-14.0) % Plt Count 162 (150-450) x10^3/uL MPV 9.8 (7.5-11.0) fL Gran % 83.0 H (36.0-66.0) % Immature Gran % (Auto) 0.7 H (0.00-0.4) % Nucleat RBC Rel Count 0.0 (0.00-0.1) % Eos # (Auto) 0.05 (0-0.5) x10^3/uL Immature Gran # (Auto) 0.09 H (0.00-0.03) x10^3u/L Absolute Lymphs (auto) 0.64 L (1.0-4.6) x10^3/uL Absolute Monos (auto) 1.30 (0.0-1.3) x10^3/uL Absolute Nucleated RBC 0.00 (0.00-0.01) x10^3u/L Lymphocytes % 5.2 L (24.0-44.0) % Monocytes % 10.5 (0.0-12.0) % Eosinophils % 0.4 (0.00-5.0) % Basophils % 0.2 (0.0-0.4) % Absolute Granulocytes 10.32 H (1.4-6.9) x10^3/uL Basophils # 0.02 (0-0.4) x10^3/uL Sodium 130 L (137-145) mmol/L Potassium 3.7 (3.5-5.1) mmol/L Chloride 101 (98-107) mmol/L Carbon Dioxide 19 L (22-30) mmol/L Anion Gap 13.7 (5-15) MEQ/L BUN 94 H (9-20) mg/dL Creatinine 2.67 H (0.66-1.25) mg/dL Estimated GFR 23.6 ML/MIN Glucose 115 H (74-106) mg/dL Lactic Acid (0.4-2.0) Calcium 8.3 L (8.4-10.2) mg/dL Total Bilirubin (0.2-1.3) mg/dL AST (17-59) U/L ALT (0-50) U/L Alkaline Phosphatase (38-126) U/L NT-Pro-B Natriuret Pep 1350 (<300) pg/mL Serum Total Protein (6.3-8.2) g/dL Albumin (3.5-5.0) g/dL Urine Color (Yellow) Urine Appearance (Clear) Urine pH (4.6-8.0) Ur Specific [place] (1.005-1.030) Urine Protein (Negative) Urine Glucose (UA) (Negative) mg/dL Urine Ketones (Negative) Urine Blood (Negative) Urine Nitrite (Negative) Urine Bilirubin (Negative) Urine Urobilinogen (0.2) mg/dL Ur Leukocyte Esterase (Negative) U Hyaline Cast (Auto) (0-2) /LPF Urine Microscopic RBC (0-5) /HPF Urine Microscopic WBC (0-5) /HPF Ur Epithelial Cells (None Seen) /HPF Urine Bacteria (None Seen) /HPF Urine Culture Reflexed (NO) Slides for Path Review Radiology Exams: Radiology Procedures Category Date Time Status CHEST 2 VIEWS (PA AND LAT) Routine Exams 08/23/23 07:00 Completed ECHO W/2D AND DOPPLER [US] Routine Exams 08/23/23 00:03 Taken KIDNEY [US] Routine Exams 08/23/23 23:59 Completed Multi-Disciplinary Progress Notes: Multi-Disciplinary Progress Notes 08/23/23 07:20 Pharmacy Note by Jordy Bailon Estimated CRCL is 23ml/min. Karina comp recommends Zyloprim dose 50mg every other day. Initialized on 08/23/23 07:20 - END OF NOTE Assessment/Plan (1) Urinary tract infection in male Current Visit: Yes Status: Acute Assessment & Plan: - UC pending - BC x2 pending - Recent prostate surgery - Avoid cath per - bladder scan PRN - Rocephin IV - Narcotic pain meds PRN - WBC improved 12.4 Code(s): N39.0 - URINARY TRACT INFECTION, SITE NOT SPECIFIED (2) Acute exacerbation of congestive heart failure Current Visit: Yes Status: Acute Qualifiers: Heart failure type: unspecified Qualified Code(s): I50.9 - Heart failure, unspecified Assessment & Plan: - Echo today - BNP 1350 improved - Renal US pending - Continue ASA - PT/OT - low Na+ diet - 2LNC- O2 93%, baseline RA - +2 pitting edema BLLE - DANIEL hose and elevate legs. - Strict I&O's Code(s): I50.9 - HEART FAILURE, UNSPECIFIED (3) CHERYL (acute kidney injury) Current Visit: Yes Status: Acute Assessment & Plan: - Acute on chronic KD - Labs improved today creat 2.67- trend Code(s): N17.9 - ACUTE KIDNEY FAILURE, UNSPECIFIED (4) HTN (hypertension) Current Visit: Yes Status: Chronic Assessment & Plan: - Controlled - Hold losartan and HCTZ d/t CHERYL - Continue hydralazine Code(s): I10 - ESSENTIAL (PRIMARY) HYPERTENSION (5) GERD (gastroesophageal reflux disease) Current Visit: Yes Status: Chronic Assessment & Plan: - Continue pepcid Code(s): K21.9 - GASTRO-ESOPHAGEAL REFLUX DISEASE WITHOUT ESOPHAGITIS (6) BPH (benign prostatic hyperplasia) Current Visit: Yes Status: Chronic Assessment & Plan: - continue flomax Code(s): N40.0 - BENIGN PROSTATIC HYPERPLASIA WITHOUT LOWER URINRY TRACT SYMP (7) Parkinson disease Current Visit: Yes Status: Chronic Assessment & Plan: - Continue Carbidopa/ Levodopa Code(s): G20.A1 - PARKINSON'S DIS W/O DYSKINESIA, W/O MENTION OF FLUCTUATIONS (8) Obesity (BMI 30-39.9) Current Visit: Yes Status: Chronic Assessment & Plan: - advised diet and exercise control Code(s): E66.9 - OBESITY, UNSPECIFIED (9) Hyperlipidemia Current Visit: Yes Status: Chronic Assessment & Plan: - continue statin VTE: Heparin PPI: famotidine Next of Kin: D/C plan: tomorrow Code status: DNR/ SCO Code(s): E78.5 - HYPERLIPIDEMIA, UNSPECIFIED
--- NOTE | 2023-08-23 12:52 | PCM.DS ---
Discharge Summary Date of Admission: 08/22/23 22:45 Date of Discharge: 08/23/23 Admitting Physician: JIM MORRISON MD Primary Care Provider: ROSSANA MIGUEL Allergies Allergies adhesive tape Adverse Reaction (Verified 08/22/23 18:32) aloe vera Adverse Reaction (Verified 08/22/23 18:32) Rash lisinopril Adverse Reaction (Verified 08/22/23 18:32) Cough Hospital Summary - Hospital Course Hospital Course: is a 78 year old male with a history of prostate enlargement and recent prostate procedure by Dr. Kinney on 08/01/23 (and postop Avila catheter removal on 08/16/23) who presents to the hospital with complaints of having chills, sweats, foul-smelling urine (cloudy), and some weakness (trouble with gait) on 08/20/23. He followed up with Dr. Barnes and had outpatient labs that showed wbc > 14 and a UA w/ significant bacteria and leukocytes. The PCP said the patient should come to the ED for IV antibiotics. The patient's reports that he has had chills and sweats for 3 days, with intermittent confusion for the same duration. In the ED the patient was oriented and had mild suprapubic tenderness. Leg edema was noted bilaterally and the patient's feels like the leg edema is improved since the patient recently had an injury. CHERYL and WBC improved since admission yesterday. UC and BC x2 still pending Pt has a renal US and echo today- results are pending. Will continue antibiotics for UTI. After further review of US pt will need transferred to higher level of care. Family would like transfer to [facility] where pt had his recent prostate procedure. Pt will need urology and nephrology consult. - Vitals & Intake/Output Vital Signs: Vital Signs Temperature 98 F 08/23/23 12:00 Pulse Rate 94 H 08/23/23 12:00 Respiratory Rate 17 08/23/23 12:00 Blood Pressure 132/53 08/23/23 12:00 O2 Sat by Pulse Oximetry 99 08/23/23 12:00 Intake & Output: Intake & Output 08/21/23 08/22/23 08/23/23 08/24/23 11:59 11:59 11:59 11:59 Output Total 1000 Balance -1000 Weight 120.6 kg - Lab Result Diagrams: 08/23/23 04:20 08/23/23 04:20 Lab Results-Last 24 Hrs: Lab Results-Last 24 Hours 08/22/23 08/22/23 08/22/23 Range/Units 19:15 19:30 19:30 WBC 15.9 H (4.0-10.5) x10^3/uL RBC 3.87 L (4.1-5.6) x10^6/uL Hgb 11.5 L (12.5-18.0) g/dL Hct 33.9 L (42-50) % MCV 87.6 (78-100) fL MCH 29.7 (26-32) pg MCHC 33.9 (32-36) g/dL RDW 14.0 (11.5-14.0) % Plt Count 190 (150-450) x10^3/uL MPV 10.6 (7.5-11.0) fL Gran % 88.1 H (36.0-66.0) % Immature Gran % (Auto) 0.5 H (0.00-0.4) % Nucleat RBC Rel Count 0.0 (0.00-0.1) % Eos # (Auto) 0.01 (0-0.5) x10^3/uL Immature Gran # (Auto) 0.08 H (0.00-0.03) x10^3u/L Absolute Lymphs (auto) 0.37 L (1.0-4.6) x10^3/uL Absolute Monos (auto) 1.42 H (0.0-1.3) x10^3/uL Absolute Nucleated RBC 0.00 (0.00-0.01) x10^3u/L Lymphocytes % 2.3 L (24.0-44.0) % Monocytes % 8.9 (0.0-12.0) % Eosinophils % 0.1 (0.00-5.0) % Basophils % 0.1 (0.0-0.4) % Absolute Granulocytes 14.01 H (1.4-6.9) x10^3/uL Basophils # 0.02 (0-0.4) x10^3/uL Sodium 128 L (137-145) mmol/L Potassium 3.9 (3.5-5.1) mmol/L Chloride 97 L (98-107) mmol/L Carbon Dioxide 19 L (22-30) mmol/L Anion Gap 15.8 H (5-15) MEQ/L BUN 92 H (9-20) mg/dL Creatinine 3.00 H (0.66-1.25) mg/dL Estimated GFR 20.5 ML/MIN Glucose 139 H (74-106) mg/dL Lactic Acid 2.4 H (0.4-2.0) Calcium 8.5 (8.4-10.2) mg/dL Total Bilirubin 0.90 (0.2-1.3) mg/dL AST 106 H (17-59) U/L ALT 10 (0-50) U/L Alkaline Phosphatase 105 (38-126) U/L NT-Pro-B Natriuret Pep (<300) pg/mL Serum Total Protein 6.5 (6.3-8.2) g/dL Albumin 3.7 (3.5-5.0) g/dL Urine Color (Yellow) Urine Appearance (Clear) Urine pH (4.6-8.0) Ur Specific [place] (1.005-1.030) Urine Protein (Negative) Urine Glucose (UA) (Negative) mg/dL Urine Ketones (Negative) Urine Blood (Negative) Urine Nitrite (Negative) Urine Bilirubin (Negative) Urine Urobilinogen (0.2) mg/dL Ur Leukocyte Esterase (Negative) U Hyaline Cast (Auto) (0-2) /LPF Urine Microscopic RBC (0-5) /HPF Urine Microscopic WBC (0-5) /HPF Ur Epithelial Cells (None Seen) /HPF Urine Bacteria (None Seen) /HPF Urine Culture Reflexed (NO) Slides for Path Review YES 08/22/23 08/22/23 08/22/23 Range/Units 19:30 20:55 21:28 WBC (4.0-10.5) x10^3/uL RBC (4.1-5.6) x10^6/uL Hgb (12.5-18.0) g/dL Hct (42-50) % MCV (78-100) fL MCH (26-32) pg MCHC (32-36) g/dL RDW (11.5-14.0) % Plt Count (150-450) x10^3/uL MPV (7.5-11.0) fL Gran % (36.0-66.0) % Immature Gran % (Auto) (0.00-0.4) % Nucleat RBC Rel Count (0.00-0.1) % Eos # (Auto) (0-0.5) x10^3/uL Immature Gran # (Auto) (0.00-0.03) x10^3u/L Absolute Lymphs (auto) (1.0-4.6) x10^3/uL Absolute Monos (auto) (0.0-1.3) x10^3/uL Absolute Nucleated RBC (0.00-0.01) x10^3u/L Lymphocytes % (24.0-44.0) % Monocytes % (0.0-12.0) % Eosinophils % (0.00-5.0) % Basophils % (0.0-0.4) % Absolute Granulocytes (1.4-6.9) x10^3/uL Basophils # (0-0.4) x10^3/uL Sodium (137-145) mmol/L Potassium (3.5-5.1) mmol/L Chloride (98-107) mmol/L Carbon Dioxide (22-30) mmol/L Anion Gap (5-15) MEQ/L BUN (9-20) mg/dL Creatinine (0.66-1.25) mg/dL Estimated GFR ML/MIN Glucose (74-106) mg/dL Lactic Acid 1.4 (0.4-2.0) Calcium (8.4-10.2) mg/dL Total Bilirubin (0.2-1.3) mg/dL AST (17-59) U/L ALT (0-50) U/L Alkaline Phosphatase (38-126) U/L NT-Pro-B Natriuret Pep 2860 (<300) pg/mL Serum Total Protein (6.3-8.2) g/dL Albumin (3.5-5.0) g/dL Urine Color Yellow (Yellow) Urine Appearance Turbid A (Clear) Urine pH 6.0 (4.6-8.0) Ur Specific [place] 1.015 (1.005-1.030) Urine Protein 100 A (Negative) Urine Glucose (UA) Negative (Negative) mg/dL Urine Ketones Trace A (Negative) Urine Blood Moderate A (Negative) Urine Nitrite Negative (Negative) Urine Bilirubin Negative (Negative) Urine Urobilinogen 1.0 A (0.2) mg/dL Ur Leukocyte Esterase Large A (Negative) U Hyaline Cast (Auto) None Seen (0-2) /LPF Urine Microscopic RBC 0-2 (0-5) /HPF Urine Microscopic WBC >100 A (0-5) /HPF Ur Epithelial Cells None Seen (None Seen) /HPF Urine Bacteria Moderate A (None Seen) /HPF Urine Culture Reflexed YES (NO) Slides for Path Review 08/23/23 08/23/23 Range/Units 04:20 04:20 WBC 12.4 H (4.0-10.5) x10^3/uL RBC 3.65 L (4.1-5.6) x10^6/uL Hgb 10.6 L (12.5-18.0) g/dL Hct 31.9 L (42-50) % MCV 87.4 (78-100) fL MCH 29.0 (26-32) pg MCHC 33.2 (32-36) g/dL RDW 13.8 (11.5-14.0) % Plt Count 162 (150-450) x10^3/uL MPV 9.8 (7.5-11.0) fL Gran % 83.0 H (36.0-66.0) % Immature Gran % (Auto) 0.7 H (0.00-0.4) % Nucleat RBC Rel Count 0.0 (0.00-0.1) % Eos # (Auto) 0.05 (0-0.5) x10^3/uL Immature Gran # (Auto) 0.09 H (0.00-0.03) x10^3u/L Absolute Lymphs (auto) 0.64 L (1.0-4.6) x10^3/uL Absolute Monos (auto) 1.30 (0.0-1.3) x10^3/uL Absolute Nucleated RBC 0.00 (0.00-0.01) x10^3u/L Lymphocytes % 5.2 L (24.0-44.0) % Monocytes % 10.5 (0.0-12.0) % Eosinophils % 0.4 (0.00-5.0) % Basophils % 0.2 (0.0-0.4) % Absolute Granulocytes 10.32 H (1.4-6.9) x10^3/uL Basophils # 0.02 (0-0.4) x10^3/uL Sodium 130 L (137-145) mmol/L Potassium 3.7 (3.5-5.1) mmol/L Chloride 101 (98-107) mmol/L Carbon Dioxide 19 L (22-30) mmol/L Anion Gap 13.7 (5-15) MEQ/L BUN 94 H (9-20) mg/dL Creatinine 2.67 H (0.66-1.25) mg/dL Estimated GFR 23.6 ML/MIN Glucose 115 H (74-106) mg/dL Lactic Acid (0.4-2.0) Calcium 8.3 L (8.4-10.2) mg/dL Total Bilirubin (0.2-1.3) mg/dL AST (17-59) U/L ALT (0-50) U/L Alkaline Phosphatase (38-126) U/L NT-Pro-B Natriuret Pep 1350 (<300) pg/mL Serum Total Protein (6.3-8.2) g/dL Albumin (3.5-5.0) g/dL Urine Color (Yellow) Urine Appearance (Clear) Urine pH (4.6-8.0) Ur Specific [place] (1.005-1.030) Urine Protein (Negative) Urine Glucose (UA) (Negative) mg/dL Urine Ketones (Negative) Urine Blood (Negative) Urine Nitrite (Negative) Urine Bilirubin (Negative) Urine Urobilinogen (0.2) mg/dL Ur Leukocyte Esterase (Negative) U Hyaline Cast (Auto) (0-2) /LPF Urine Microscopic RBC (0-5) /HPF Urine Microscopic WBC (0-5) /HPF Ur Epithelial Cells (None Seen) /HPF Urine Bacteria (None Seen) /HPF Urine Culture Reflexed (NO) Slides for Path Review - Radiology Exams Ordered Rad Exams-Entire Visit: Radiology Procedures Category Date Time Status CHEST 2 VIEWS (PA AND LAT) Routine Exams 08/23/23 07:00 Completed ECHO W/2D AND DOPPLER [US] Routine Exams 08/23/23 00:03 Taken KIDNEY [US] Routine Exams 08/23/23 23:59 Completed - Procedures and Test Procedures and Tests throughout Hospitalization: Therapy Orders & Screens 08/23/23 00:00 PT Eval & Treat ( Order) ONCE Reason for Eval:: ASSESS AMBULATORY NEEDS Diagnosis: UTI 08/23/23 01:03 Oxygen Nasal Cannula 2 lpm Comment: Diagnosis: UTI Discharge Exam General Appearance: no apparent distress, alert Neurologic Exam: alert, oriented x 3, cooperative, normal mood/affect, nml cerebellar function, sensation nml, No motor deficits Eye Exam: PERRL, EOMI, eyes nml inspection Ears, Nose, Throat Exam: normal ENT inspection, pharynx normal, moist mucous membranes Neck Exam: normal inspection, non-tender, supple, full range of motion Respiratory Exam: normal breath sounds, lungs clear, No respiratory distress Cardiovascular Exam: regular rate/rhythm, normal heart sounds, edema (+ 2 pitting BLLE) Gastrointestinal/Abdomen Exam: soft, No tenderness, No mass Male Genitalia Exam: deferred Rectal Exam: deferred Back Exam: normal inspection, normal range of motion, No CVA tenderness, No vertebral tenderness Extremity Exam: normal inspection, normal range of motion Skin Exam: normal color, warm, dry Final Diagnosis/Problem List - Final Discharge Diagnosis/Problem (1) Urinary tract infection in male Current Visit: Yes Status: Acute Code(s): N39.0 - URINARY TRACT INFECTION, SITE NOT SPECIFIED (2) Acute exacerbation of congestive heart failure Current Visit: Yes Status: Acute Code(s): I50.9 - HEART FAILURE, UNSPECIFIED (3) CHERYL (acute kidney injury) Current Visit: Yes Status: Acute Code(s): N17.9 - ACUTE KIDNEY FAILURE, UNSPECIFIED (4) HTN (hypertension) Current Visit: Yes Status: Chronic Code(s): I10 - ESSENTIAL (PRIMARY) HYPERTENSION (5) GERD (gastroesophageal reflux disease) Current Visit: Yes Status: Chronic Code(s): K21.9 - GASTRO-ESOPHAGEAL REFLUX DISEASE WITHOUT ESOPHAGITIS (6) BPH (benign prostatic hyperplasia) Current Visit: Yes Status: Chronic Code(s): N40.0 - BENIGN PROSTATIC HYPERPLASIA WITHOUT LOWER URINRY TRACT SYMP (7) Parkinson disease Current Visit: Yes Status: Chronic Code(s): G20.A1 - PARKINSON'S DIS W/O DYSKINESIA, W/O MENTION OF FLUCTUATIONS (8) Obesity (BMI 30-39.9) Current Visit: Yes Status: Chronic Code(s): E66.9 - OBESITY, UNSPECIFIED (9) Hyperlipidemia Current Visit: Yes Status: Chronic Code(s): E78.5 - HYPERLIPIDEMIA, UNSPECIFIED - Discharge Disposition: Home, Self-Care Condition: Stable Prescriptions: No Action Lovastatin 10 mg PO HS Losartan Potassium 50 mg PO DAILY Hydrocodone/Acetaminophen [Hydrocodone-Acetamin 10-325 mg] 1 each PO BID hydroCHLOROthiazide [Hydrochlorothiazide] 12.5 mg PO DAILY Carbidopa/Levodopa [Carbidopa-Levodopa 25-100 Tab] 2 tab PO TID Allopurinol 100 mg [Zyloprim 100 mg] 100 mg PO BID Levofloxacin [Levofloxacin 500 MG Tablet] 500 mg PO 1300 Gabapentin [Neurontin ] 300 mg PO DAILY Tamsulosin HCl 0.4 mg [Flomax 0.4 MG] 0.4 mg PO 1500 Aspirin EC 81 mg [Ecotrin 81 mg] 81 mg PO HS Follow up with: ROSSANA MIGUEL [Primary Care Provider] -
[2023-08-23] MEDS: Flomax 0.4 MG PO SCH (15:57)
[2023-08-23] MEDS: TYLENOL 325 MG PO PRN (19:31)
[2023-08-23] MEDS: ECOTRIN 81 MG PO SCH (21:42)
[2023-08-23] MEDS: Zocor 10MG PO SCH (21:42)
[2023-08-24 06:55] VITALS: O2SAT 97
[2023-08-24 08:14] VITALS: TEMP 97.7
[2023-08-24] MEDS: NORCO 10-325 MG PO PRN (08:32)
[2023-08-24 09:06] LABS: Hematocrit 33.4 % (42-50); Hemoglobin 11.3 g/dL (12.5-18.0); Mean Cell Volume 86.8 fL (78-100); Mean Corpuscular Hemoglobin 29.4 pg (26-32); Mean Corpuscular Hgb Concent. 33.8 g/dL (32-36); Platelet Count 194 x10^3/uL (150-450); Red Blood Count 3.85 x10^6/uL (4.1-5.6); Red Cell Distribution Width 13.6 % (11.5-14.0); White Blood Count 11.8 x10^3/uL (4.0-10.5)
[2023-08-24] MEDS: Coreg PO SCH (10:46)
[2023-08-24 11:03] LABS: ALBUMIN 3.4 g/dL (3.5-5.0); ANION GAP 9.4 MEQ/L (5-15); BILIRUBIN,TOTAL 0.8 mg/dL (0.2-1.3); Calcium 8.7 mg/dL (8.4-10.2); Creatinine 1 1.59 mg/dL (0.66-1.25); EST GLOMERULAR FILTRATION RATE 43.9 ML/MIN; Potassium 3.5 mmol/L (3.5-5.1); Total Protein 6.3 g/dL (6.3-8.2)
[2023-08-24 12:15] VITALS: BP 102/50; PULSE 70; RESP 18
--- NOTE | 2023-08-24 13:31 | PCM.DS ---
Discharge Summary Date of Admission: 08/22/23 22:45 Date of Discharge: 08/24/23 Admitting Physician: JIM MORRISON MD Primary Care Provider: ROSSANA MIGUEL Allergies Allergies adhesive tape Adverse Reaction (Verified 08/22/23 18:32) aloe vera Adverse Reaction (Verified 08/22/23 18:32) Rash lisinopril Adverse Reaction (Verified 08/22/23 18:32) Cough Hospital Summary - Hospital Course Hospital Course: 08/23/23 is a 78 year old male with a history of prostate enlargement and recent prostate procedure by Dr. Kinney on 08/01/23 (and postop Avila catheter removal on 08/16/23) who presents to the hospital with complaints of having chills, sweats, foul-smelling urine (cloudy), and some weakness (trouble with gait) on 08/20/23. He followed up with Dr. Barnes and had outpatient labs that showed wbc > 14 and a UA w/ significant bacteria and leukocytes. The PCP said the patient should come to the ED for IV antibiotics. The patient's reports that he has had chills and sweats for 3 days, with intermittent confusion for the same duration. In the ED the patient was oriented and had mild suprapubic tenderness. Leg edema was noted bilaterally and the patient's feels like the leg edema is improved since the patient recently had an injury. CHERYL and WBC improved since admission yesterday. UC and BC x2 still pending Pt has a renal US and echo today- results are pending. Will continue antibiotics for UTI. Pt's family would like him discharged as soon as possible so that they can f/u with their specialist in [place]. Most likely will d/c tomorrow. Pt denies any further concerns at this time. 06/23/24 Pt resting in the chair. He is feeling much better. Avila placed yesterday for hydronephrotic left kidney with 1800ml out. Avila placed per request of Dr. Kinney urology. Discussed with Dr. Kinney yesterday pt's UTI and US results. UC came back Morganella Morganii ssp maria eugenia- will d/c with cefuroxime. Pt to f/u with cardiology, appointment made. He is to f/u with urology in 2 weeks. Discussed results of echo and dx of CHF. Pt continues to have +2 pitting edema of BLLE. Daniel hose in place. Advised to remain on low Na+ diet at home and elevate legs. He denies CP, SOb, abd. pain, N/V/D. - Vitals & Intake/Output Vital Signs: Vital Signs Temperature 97.7 F 08/24/23 12:00 Pulse Rate 70 08/24/23 12:00 Respiratory Rate 18 08/24/23 12:00 Blood Pressure 102/50 08/24/23 12:00 O2 Sat by Pulse Oximetry 97 08/24/23 12:00 Intake & Output: Intake & Output 08/22/23 08/23/23 08/24/23 08/25/23 11:59 11:59 11:59 11:59 Intake Total 760 Output Total 1000 3650 1000 Balance -1000 -2890 -1000 Weight 120.6 kg 114.5 kg - Lab Result Diagrams: 08/24/23 09:00 08/24/23 09:00 Lab Results-Last 24 Hrs: Lab Results-Last 24 Hours 08/24/23 08/24/23 08/24/23 Range/Units 09:00 09:00 09:00 WBC 11.8 H (4.0-10.5) x10^3/uL RBC 3.85 L (4.1-5.6) x10^6/uL Hgb 11.3 L (12.5-18.0) g/dL Hct 33.4 L (42-50) % MCV 86.8 (78-100) fL MCH 29.4 (26-32) pg MCHC 33.8 (32-36) g/dL RDW 13.6 (11.5-14.0) % Plt Count 194 (150-450) x10^3/uL MPV 10.0 (7.5-11.0) fL Sodium 135 L (137-145) mmol/L Potassium 3.5 (3.5-5.1) mmol/L Chloride 103 (98-107) mmol/L Carbon Dioxide 26 (22-30) mmol/L Anion Gap 9.4 (5-15) MEQ/L BUN 67 H (9-20) mg/dL Creatinine 1.59 H (0.66-1.25) mg/dL Estimated GFR 43.9 ML/MIN Glucose 139 H (74-106) mg/dL Calcium 8.7 (8.4-10.2) mg/dL Total Bilirubin 0.80 (0.2-1.3) mg/dL AST 63 H (17-59) U/L ALT 17 (0-50) U/L Alkaline Phosphatase 95 (38-126) U/L Serum Total Protein 6.3 (6.3-8.2) g/dL Albumin 3.4 L (3.5-5.0) g/dL Procalcitonin 7.760 H* (0.030-0.080) ng/mL Micro Results-Entire Visit: Microbiology 08/22/23 20:55 Urine Culture - Preliminary Clean Catch Midstream GRAM NEGATIVE ID AND SENSITIVITY PENDING 08/22/23 19:32 Blood Culture - Preliminary Blood 08/22/23 19:38 Blood Culture - Preliminary Blood - Radiology Exams Ordered Rad Exams-Entire Visit: Radiology Procedures Category Date Time Status CHEST 2 VIEWS (PA AND LAT) Routine Exams 08/23/23 07:00 Completed ECHO W/2D AND DOPPLER [US] Routine Exams 08/23/23 00:03 Taken KIDNEY [US] Routine Exams 08/23/23 23:59 Completed - Procedures and Test Procedures and Tests throughout Hospitalization: Therapy Orders & Screens 08/23/23 00:00 PT Eval & Treat (MD Order) ONCE Reason for Eval:: ASSESS AMBULATORY NEEDS Diagnosis: UTI 08/23/23 01:03 Oxygen Nasal Cannula 2 lpm Comment: Diagnosis: UTI Discharge Exam General Appearance: no apparent distress, alert Neurologic Exam: alert, oriented x 3, cooperative, normal mood/affect, nml cerebellar function, sensation nml, No motor deficits Eye Exam: PERRL, EOMI, eyes nml inspection Ears, Nose, Throat Exam: normal ENT inspection, pharynx normal, moist mucous membranes Neck Exam: normal inspection, non-tender, supple, full range of motion Respiratory Exam: normal breath sounds, lungs clear, No respiratory distress Cardiovascular Exam: regular rate/rhythm, normal heart sounds, edema (+3 pitting edema BLLE) Gastrointestinal/Abdomen Exam: soft, No tenderness, No mass Male Genitalia Exam: deferred Rectal Exam: deferred Back Exam: normal inspection, normal range of motion, No CVA tenderness, No vertebral tenderness Extremity Exam: normal inspection, normal range of motion Skin Exam: normal color, warm, dry Final Diagnosis/Problem List - Final Discharge Diagnosis/Problem (1) Complicated urinary tract infection Current Visit: Yes Status: Acute Assessment & Plan: - UC pending - BC x2 pending - Recent prostate surgery - Avoid cath per - bladder scan PRN - Rocephin IV - Narcotic pain meds PRN - WBC improved 12.4 - Renal US came back showin. Abnormally distended urinary bladder with large post void residual asdetailed. Rule out outlet obstruction versus neurogenic bladder.2. 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 Rule out vesico-ureteral reflux as a potential etiology. Spoke with pt's urologist Dr. Kinney. He advised no need for transfer at this time based on pt's condition. He recommended to place 16 Kiswahili coude catheter and f/u in office in 2 weeks. If something changes to reach out to him. [facility] unable to take any pt's at this time as they are full. 08/24 - UC + Morganella Morganii ssp maria eugenia- will d/c with cefuroxime. - F/U with urology OP - WBC 11.8 - Procal 7.760 Code(s): N39.0 - URINARY TRACT INFECTION, SITE NOT SPECIFIED (2) Acute exacerbation of congestive heart failure Current Visit: Yes Status: Acute Assessment & Plan: - Echo today - BNP 1350 improved - Renal US reviewed - Continue ASA - PT/OT - low Na+ diet - 2LNC- O2 93%, baseline RA - +2 pitting edema BLLE - ADNIEL hose and elevate legs. - Strict I&O's 08/24 - EF per administrative technician 45-49% - appointment made to f/u with cardiology OP Code(s): I50.9 - HEART FAILURE, UNSPECIFIED (3) CHERYL (acute kidney injury) Current Visit: Yes Status: Acute Assessment & Plan: - Acute on chronic KD - Labs improved today creat 2.67- trend 08/24 - labs improved Code(s): N17.9 - ACUTE KIDNEY FAILURE, UNSPECIFIED (4) HTN (hypertension) Current Visit: Yes Status: Chronic Assessment & Plan: - Controlled - Hold losartan and HCTZ d/t CHERYL - Continue hydralazine 08/24 - coreg started Code(s): I10 - ESSENTIAL (PRIMARY) HYPERTENSION (5) GERD (gastroesophageal reflux disease) Current Visit: Yes Status: Chronic Assessment & Plan: - Continue pepcid Code(s): K21.9 - GASTRO-ESOPHAGEAL REFLUX DISEASE WITHOUT ESOPHAGITIS (6) BPH (benign prostatic hyperplasia) Current Visit: Yes Status: Chronic Assessment & Plan: - continue flomax Code(s): N40.0 - BENIGN PROSTATIC HYPERPLASIA WITHOUT LOWER URINRY TRACT SYMP (7) Parkinson disease Current Visit: Yes Status: Chronic Assessment & Plan: - Continue Carbidopa/ Levodopa Code(s): G20.A1 - PARKINSON'S DIS W/O DYSKINESIA, W/O MENTION OF FLUCTUATIONS (8) Obesity (BMI 30-39.9) Current Visit: Yes Status: Chronic Assessment & Plan: - advised diet and exercise control Code(s): E66.9 - OBESITY, UNSPECIFIED (9) Hyperlipidemia Current Visit: Yes Status: Chronic Assessment & Plan: - continue statin Code(s): E78.5 - HYPERLIPIDEMIA, UNSPECIFIED (10) Atelectasis of left lung Current Visit: Yes Status: Acute Assessment & Plan: - Chest XR 08/23: AP/lateral chest obtained in wheelchair demonstrates hyperinflated lungs with small left effusion and left midlung subsegmental atelectasis. Right lung clear. Heart not enlarged with CABG. Bony thorax intact with osteopenia, mild degenerative changes, and old right rib fractures. - has been getting rocephin IP - WBC improved 11.8 - RA- 97% Code(s): J98.11 - ATELECTASIS - Discharge Discharge Date: 08/24/23 Disposition: Home, Self-Care Condition: Stable Prescriptions: Continue Lovastatin 10 mg PO HS Hydrocodone/Acetaminophen [Hydrocodone-Acetamin 10-325 mg] 1 each PO BID Carbidopa/Levodopa [Carbidopa-Levodopa 25-100 Tab] 2 tab PO TID Allopurinol 100 mg [Zyloprim 100 mg] 100 mg PO BID Gabapentin [Neurontin ] 300 mg PO DAILY Tamsulosin HCl 0.4 mg [Flomax 0.4 MG] 0.4 mg PO 1500 Aspirin EC 81 mg [Ecotrin 81 mg] 81 mg PO HS Discontinued Losartan Potassium 50 mg PO DAILY hydroCHLOROthiazide [Hydrochlorothiazide] 12.5 mg PO DAILY Levofloxacin [Levofloxacin 500 MG Tablet] 500 mg PO 1300 Additional Instructions: Please make sure to weight self daily. if > 5 lb weight gain contact cardiology. Please take BP twice daily and take log of blood pressure readings with you to cardiology appointment. Please try to minit salt and saty on a low sodium diet < 2grams per day. Follow up with cardiology and urology as we have made appointments, Please wear DANIEL hose during the day and elevate legs to reduce swelling of bilateral lower extremities. Follow up with: ROSSANA MIGUEL [Primary Care Provider] - 09/01/23 9:30 am
== END 2023-08-24 16:57 | disposition home or self-care (01) ==
LOC: ED 17:17 → MED SURG 22:45
PROVIDERS: ADMIT Internal Medicine; ATTEND Internal Medicine
DX: N39.0 Urinary tract infection, site not specified (principal); I11.0 Hypertensive heart disease with heart failure; I50.9 Heart failure, unspecified; N17.9 Acute kidney failure, unspecified; K21.9 Gastro-esophageal reflux disease without esophagitis; N40.0 Benign prostatic hyperplasia without lower urinary tract symptoms; G20.A1 Parkinson's disease without dyskinesia, without mention of fluctuations; E66.9 Obesity, unspecified; E78.5 Hyperlipidemia, unspecified; J98.11 Atelectasis; R60.0 Localized edema; Z79.899 Other long term (current) drug therapy; Z20.828 Contact with and (suspected) exposure to other viral communicable diseases; Z95.0 Presence of cardiac pacemaker
CPT/HCPCS: 36000; 36415; 71046; 76770; 80048; 80053; 81001; 83605; 83880; 84145; 85025; 85027; 87040; 87086; 93306; 94762; 96372; 97163; 99285; Q3014; 87077; 87186; 93268; G0378; J0696; J1644; A9270-GY